=== PATIENT | female | born 1975 | race Caucasian/White ===

== ENCOUNTER 2017-07-21 19:32 | Emergency (ER) | END 2017-07-21 20:45 | disposition home or self-care (01) ==

== ENCOUNTER 2017-07-25 10:55 | Emergency (ER) | END 2017-07-25 14:25 | disposition home or self-care (01) ==

== ENCOUNTER 2017-10-02 17:47 | Emergency (ER) | END 2017-10-02 23:37 | disposition home or self-care (01) ==

== ENCOUNTER 2017-10-04 15:43 | Emergency (ER) | END 2017-10-04 16:13 | disposition home or self-care (01) ==

== ENCOUNTER 2019-03-04 17:41 | Emergency (ER) | payer SELFPAY ==
[~2019-03-04] VITALS: Ht 167.6 cm; Wt 83.7 kg
[~2019-03-04 17:41] MED LIST: ACET500C5 PO; BACTDS PO; CEPH-443 PO; GUAI5SYR2 PO; HYDR-4011 PO; IBUP-1542 PO; NAPR-985 PO; ONDA4TAB14 PO; OSEL75CA23 PO; SULF1TAB31 PO
[2019-03-04 17:43] VITALS: Ht 167.6 cm; Wt 83.7 kg
[2019-03-04] MEDS ORDERED: SOD CHLORIDE 0.9% 1,000 ML IV STA (17:44)
[2019-03-04] MEDS ORDERED: morphine 4 MG/ML VIAL IV ONE (18:00)
[2019-03-04] MEDS ORDERED: ONDANSETRON 4 MG INJ IV ONE (18:00)
[2019-03-04] MEDS ORDERED: SOD CHLORIDE 0.9% 100 ML ONE (18:36)
[2019-03-04] MEDS ORDERED: IOHEXOL 300MG/ML 150 ML BTL ONE (18:36)
[2019-03-04 20:38] VITALS: BP 143/99; PULSE 76; RESP 18
== END 2019-03-04 20:41 | disposition home or self-care (01) ==
LOC: E/R 17:41
DX: R10.9 Unspecified abdominal pain (principal); I10 Essential (primary) hypertension; E11.9 Type 2 diabetes mellitus without complications; M54.2 Cervicalgia; M25.551 Pain in right hip
CPT/HCPCS: 36415; 70450; 71260; 72125; 73550; 74177; 80053; 80307; 81025; 85025; 85610; 85730; 96361; 96374; 96375; 99285; J2270; J2405; J7030; Q9967